=== PATIENT | female | born 1980 | race Caucasian/White ===

== ENCOUNTER 2016-09-09 14:41 | Emergency (ER) | payer OTHER, SELFPAY ==
[~2016-09-09] VITALS: Ht 157.5 cm; Wt 47.6 kg
[~2016-09-09 14:41] MED LIST: /HYDR10T OR; ADDE20TA OR; HYDRO50TAB PO; HYDROXINE OR; PERCOCET OR; PROZ40CA OR; PROZAC PO; PYRI200T2 OR; SIME40TA OR; VITAD1000T OR
[2016-09-09] MEDS ORDERED: LAMI25TA PO (14:57)
[2016-09-09] MEDS ORDERED: ASPIRIN 81 MG CHEW TABLET PO ONE (15:15)
[2016-09-09 15:37] LABS: BASO # 0.1 K/mm3 (0.0-0.2); BASO % 1.2 % (0.0-1.0); EOS # 0.1 K/mm3 (0.0-0.50); EOS % 2.7 % (0.0-3.0); LARGE UNSTAINED CELL # 0.1 K/mm3 (0.0-0.4); LARGE UNSTAINED CELL % 1.4 % (0.0-4.0); LYMPH # 1.6 K/mm3 (1.5-4.5); LYMPH % 31.7 % (24.0-44.0); MEAN CORPUSCULAR HGB CONC 33.6 g/dl (32.0-36.5); MEAN CORPUSCULAR VOLUME 89.3 fl (80.0-96.0); MONO # 0.4 K/mm3 (0.0-0.8); MONO % 7.5 % (0.0-5.0); NEUTROPHILS # 2.6 K/mm3 (1.8-7.7); NEUTROPHILS % 55.5 % (36.0-66.0); PLATELET COUNT, AUTOMATED 314 k/mm3 (150-450); RED CELL DISTRIBUTION WIDTH 12.3 % (11.5-14.5); WHITE BLOOD COUNT 4.7 K/mm3 (4.0-10.0)
[2016-09-09 15:52] LABS: CONTROL LINE HCG INT CTR LINE PRESENT
[2016-09-09 16:02] LABS: ALBUMIN 3.8 GM/DL (3.2-5.2); ALBUMIN/GLOBULIN RATIO 1.27 (1.00-1.93); ALKALINE PHOSPHATASE 46 U/L (45-117); ALT/SGPT 20 U/L (12-78); ANION GAP 8 MEQ/L (8-16); AST/SGOT 14 U/L (15-37); BILIRUBIN,DIRECT 0.4 MG/DL (0.0-0.2); BILIRUBIN,TOTAL 1.8 MG/DL (0.2-1.0); BLOOD UREA NITROGEN 12 MG/DL (7-18); CALCIUM LEVEL 8.7 MG/DL (8.5-10.1); CARBON DIOXIDE LEVEL 26 MEQ/L (21-32); CHLORIDE LEVEL 110 MEQ/L (98-107); CREATININE FOR GFR 1.13 MG/DL (0.55-1.02); GLUCOSE, FASTING 65 MG/DL (70-105); MAGNESIUM LEVEL 2.5 MG/DL (1.8-2.4); PHOSPHORUS LEVEL 0.9 MG/DL (2.5-4.9); POTASSIUM SERUM 3.5 MEQ/L (3.5-5.1); SODIUM LEVEL 144 MEQ/L (136-145); TOTAL PROTEIN 6.8 GM/DL (6.4-8.2)
[2016-09-09 16:07] LABS: FREE T4 1.17 NG/DL (0.76-1.46)
--- NOTE | 2016-09-09 16:42 | REP ---
Chest two views HISTORY: Chest pain Comparison: None The lungs are clear. The heart is normal in size. The pulmonary vasculature is normal in appearance. The bony structure is intact. IMPRESSION: No acute disease. Signed by Stevo Diaz MD 09/09/2016 04:34 P
[2016-09-09] MEDS ORDERED: NEUTRA-PHOS 1.25 GM PACKET PO ONE (17:00)
[2016-09-09 17:09] LABS: METHADONE URINE NEGATIVE (NEGATIVE)
--- NOTE | 2016-09-09 17:59 | REP ---
CT ANGIO CHEST: REASON: Dyspnea and chest pain. COMPARISON: None. CONTRAST UTILIZED: 100 mL Isovue-370. There is excellent visualization of the pulmonary arterial venous vasculature. There are no focal filling defects present that would be considered consistent with pulmonary emboli. There is no mediastinal or hilar adenopathy. There are no pleural or pericardial effusions. Evaluation of the lung abernathy show no abnormal nodules, masses, or opacities. The imaged upper abdomen and imaged osseous structures are within normal limits. IMPRESSION: CT findings are within normal limits. Signed by Duncan Rodriguez DO 09/09/2016 06:28 P
--- NOTE | 2016-09-09 18:13 | ECGEPIP ---
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
--- NOTE | 2016-09-09 18:19 | ECGEPIP ---
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
[2016-09-09 22:31] VITALS: BP 110/70
--- NOTE | 2016-09-10 05:53 | ECGEPIP ---
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
== END 2016-09-09 22:55 | disposition home or self-care (01) ==
LOC: M ED 16:16
DX: I48.91 Unspecified atrial fibrillation (principal); E83.39 Other disorders of phosphorus metabolism; F41.9 Anxiety disorder, unspecified; Z82.49 Family history of ischemic heart disease and other diseases of the circulatory system; Z79.899 Other long term (current) drug therapy; L23.1 Allergic contact dermatitis due to adhesives

== ENCOUNTER 2024-11-19 10:34 | Emergency (ER) | payer BC, MEDICAID, SELFPAY ==
[~2024-11-19] VITALS: Ht 154.9 cm; Wt 71.8 kg
[~2024-11-19 10:34] MED LIST changes: +HYDR-4274 PO; -HYDRO50TAB PO; +LAMI25TA PO; +OXYC1TAB23 OR; -PERCOCET OR
[2024-11-19 11:22] LABS: BASO # 0.1 10^3/uL (0.0-0.2); BASO % 1.7 % (0.0-1.0); EOS # 0.3 10^3/uL (0.0-0.5); EOS % 3.6 % (0.0-3.0); LYMPH # 2.8 10^3/uL (1.5-5.0); LYMPH % 39.2 % (24.0-44.0); MONO # 0.7 10^3/uL (0.0-0.8); MONO % 9.7 % (2.0-8.0); NEUTROPHILS # 3.3 10^3/uL (1.5-8.5); NEUTROPHILS % 45.5 % (36.0-66.0); PLATELET COUNT, AUTOMATED 350 10^3/uL (150-450)
[2024-11-19] MEDS: METOPROLOL TART 25 MG TABLET PO ONE (11:25)
[2024-11-19] MEDS: METOPROLOL 5 MG/5 ML VIAL IV SCH (11:25)
[2024-11-19 11:34] VITALS: BP 139/73
[2024-11-19 11:50] LABS: HCG, SERUM QUALITATIVE NEGATIVE (NEGATIVE)
[2024-11-19 11:51] LABS: CALCIUM LEVEL 9.8 MG/DL (8.5-10.1); CARBON DIOXIDE LEVEL 24 MMOL/L (20-31); CHLORIDE LEVEL 109 MMOL/L (98-107); CK-MB VALUE MASS 1.5 NG/ML (<3.6); CPK CREATINE PHOSPHOKINASE 164 U/L (34-145); CREATININE FOR GFR 0.93 MG/DL (0.55-1.30); GLOMERULAR FILTRATION RATE 77.2 (>58); MB/CK RELATIVE INDEX 0.91 (< OR =4); POTASSIUM SERUM 4.4 MMOL/L (3.5-5.1); SODIUM LEVEL 146 MMOL/L (136-145)
[2024-11-19] MEDS ORDERED: METO25TA4 PO (12:56)
[2024-11-19] MEDS ORDERED: ASPI81TA26 PO (12:56)
[2024-11-19 13:08] LABS: CK-MB VALUE MASS < 1.0 NG/ML (<3.6)
[2024-11-19 13:09] LABS: CPK CREATINE PHOSPHOKINASE 152 U/L (34-145)
[2024-11-19 14:04] VITALS: BP 122/84; TEMP 98.7; O2SAT 98
== END 2024-11-19 14:14 | disposition home or self-care (01) ==
LOC: M ED 10:34
DX: I48.3 Typical atrial flutter (principal); Z79.899 Other long term (current) drug therapy
CPT/HCPCS: 71045; 80048; 82550; 82553; 84443; 84484; 84703; 85025; 85379; 93005; 93041; 94760; 96374; 99285; J0616